=== PATIENT | male | born 1995 | race Hispanic/Latino ===

== ENCOUNTER 2017-02-20 13:39 | Emergency (ER) | payer SELFPAY ==
[2017-02-20 15:18] LABS: RAPID GROUP A STREP NEGATIVE (NEGATIVE)
== END 2017-02-20 15:48 | disposition home or self-care (01) ==
LOC: EDH 13:39
DX: J06.9 Acute upper respiratory infection, unspecified (principal); J20.9 Acute bronchitis, unspecified; Z87.891 Personal history of nicotine dependence
CPT/HCPCS: 87804; 87880

== ENCOUNTER 2019-11-05 15:53 | Emergency (ER) | payer OTHER | END 2019-11-05 16:50 | disposition home or self-care (01) | LOC: EDH 15:53 | DX: S93.402A Sprain of unspecified ligament of left ankle, initial encounter (principal); X58.XXXA Exposure to other specified factors, initial encounter; Y93.39 Activity, other involving climbing, rappelling and jumping off; Y92.89 Other specified places as the place of occurrence of the external cause; Y99.8 Other external cause status | CPT/HCPCS: 73610 ==

== ENCOUNTER 2020-12-10 10:04 | Emergency (ER) | payer SELFPAY ==
[~2020-12-10] VITALS: Ht 170.2 cm; Wt 108.9 kg
[2020-12-10] MEDS ORDERED: SOLU-MEDROL 125MG VIAL IVP SCH (10:30)
[2020-12-10] MEDS ORDERED: LACTATED RINGERS 1000ML 1,000 ML IV ONE (10:30)
[2020-12-10] MEDS ORDERED: DiphenhydrAMINE HCL 50 MG/ML VIAL IV SCH (10:30)
[2020-12-10] MEDS ORDERED: FAMOTIDINE 20MG VIAL IV SCH (10:30)
[2020-12-10] MEDS ORDERED: ONDANSETRON 4MG INJ IVP SCH (10:30)
[2020-12-10] MEDS ORDERED: LACTATED RINGERS 1000ML 1,000 ML IV SCH (10:30)
[2020-12-10 10:53] LABS: BASOPHILS % (AUTO) 0.1 % (0.0-5.0); EOSINOPHILS % (AUTO) 0.1 % (0.0-8.0); HEMATOCRIT 51.3 % (42-54); LYMPHOCYTES % (AUTO) 6.7 % (21.0-51.0); MEAN CORPUSCULAR HEMOGLOBIN 30.7 pg (27.0-33.0); MEAN CORPUSCULAR HGB CONC 35.3 g/dL (32.0-36.0); MEAN CORPUSCULAR VOLUME 86.9 fL (79-99); MONOCYTES % (AUTO) 0.9 % (3.0-13.0); NEUTROPHILS % (AUTO) 91.8 % (40.0-77.0); PLATELET COUNT (AUTO) 338 K/uL (130-400); RED CELL DISTRIBUTION WIDTH 12.6 % (11.0-15.5); WHITE BLOOD COUNT (AUTO) 15.1 K/uL (4.8-10.8)
[2020-12-10 11:07] LABS: CREATININE 1.5 mg/dL (0.5-1.5); POTASSIUM 4.7 mmol/L (3.5-5.1)
[2020-12-10 11:11] LABS: ALBUMIN 3.7 g/dL (3.5-5.0); BILIRUBIN,TOTAL 0.7 mg/dL (0.2-1.0); TOTAL PROTEIN, SERUM 6.7 g/dL (6.0-8.3)
[2020-12-10] MEDS ORDERED: PRED50TA2 PO (11:55)
[2020-12-10] MEDS ORDERED: FAMO40TA75 PO (11:55)
[2020-12-10] MEDS ORDERED: ONDA4TAB10 PO (11:55)
[2020-12-10] MEDS ORDERED: DIPH25 PO (11:55)
[2020-12-10 12:03] VITALS: BP 120/79
== END 2020-12-10 12:39 | disposition home or self-care (01) ==
LOC: EDH 10:04
DX: R11.0 Nausea (principal); L50.9 Urticaria, unspecified; Z79.899 Other long term (current) drug therapy
CPT/HCPCS: 36415; 80053; 83690; 85025; 96361; 96374; 96375; 99284; J1200; J2405; J2930; J3490; J7120

== ENCOUNTER 2020-12-12 00:23 | Emergency (ER) | payer SELFPAY ==
[~2020-12-12] VITALS: Ht 170.2 cm; Wt 108.9 kg
[~2020-12-12 00:23] MED LIST: DIPH25 PO; FAMO40TA75 PO; ONDA4TAB10 PO; PRED50TA2 PO
[2020-12-12] MEDS ORDERED: DiphenhydrAMINE HCL 50 MG/ML VIAL IV ONE (01:30)
[2020-12-12] MEDS ORDERED: SOLU-MEDROL 125MG VIAL IVP ONE (01:30)
[2020-12-12] MEDS ORDERED: METH4TAB3 PO (01:49)
[2020-12-12 03:22] VITALS: BP 134/72
== END 2020-12-12 03:22 | disposition home or self-care (01) ==
LOC: EDH 00:23
DX: L50.0 Allergic urticaria (principal); Z79.52 Long term (current) use of systemic steroids; Z79.899 Other long term (current) drug therapy
CPT/HCPCS: 96374; 96375; 99284; J1200; J2930